=== PATIENT | male | born 1960 | race Caucasian/White ===

== ENCOUNTER 2016-06-12 10:09 | Emergency (ER) | payer MEDICAID | END 2016-06-12 11:02 | disposition home or self-care (01) | DX: S61.411A Laceration without foreign body of right hand, initial encounter (principal); W27.8XXA Contact with other nonpowered hand tool, initial encounter; I10 Essential (primary) hypertension; F17.200 Nicotine dependence, unspecified, uncomplicated ==

== ENCOUNTER 2017-02-16 20:20 | Emergency (ER) | payer MEDICAID ==
[2017-02-16 21:39] LABS: BASOPHILS # (AUTO) 0.1 10^3/uL (0.0-0.1); EOSINOPHILS # (AUTO) 0.3 10^3/uL (0.0-0.7); HCT - HEMATOCRIT 44.1 % (42.0-52.0); HGB - HEMOGLOBIN 14.6 g/dL (14.0-18.0); LYMPHOCYTES # (AUTO) 3.3 10^3/uL (1.5-3.5); LYMPHOCYTES % (AUTO) 37.1 %; MEAN CORPUSCULAR HEMOGLOBIN 30.2 pg (27.0-31.0); MEAN CORPUSCULAR HGB CONC 33.2 g/dL (32.0-36.0); MEAN CORPUSCULAR VOLUME 90.9 fL (80.0-94.0); MEAN PLATELET VOLUME 7.1 fL (7.4-11.4); MONOCYTES # (AUTO) 0.6 10^3/uL (0.0-1.0); MONOCYTES % (AUTO) 6.9 %; NEUTROPHILS # (AUTO) 4.7 10^3/uL (1.5-6.6); NUCLEATED RED BLOOD CELLS AUTO 0.1 /100WBC; RED BLOOD COUNT 4.85 10^6/uL (4.70-6.10); RED CELL DISTRIBUTION WIDTH 13.5 % (12.0-15.0)
[2017-02-16 21:56] LABS: ALBUMIN/GLOBULIN RATIO 1.5 (1.0-2.2); BILIRUBIN,TOTAL 0.3 mg/dL (0.2-1.0); CALCIUM 9.1 mg/dL (8.5-10.3); CREATININE 0.8 mg/dL (0.6-1.2); POTASSIUM 3.4 mmol/L (3.5-5.0); TOTAL PROTEIN 6.7 g/dL (6.7-8.2)
[2017-02-16 22:17] VITALS: BP 128/70
--- NOTE | 2017-02-16 22:24 | ED Physician Documentation ---
PD HPI CHEST PAIN - Stated complaint Stated Complaint: FAST HEART BEAT - Chief complaint Chief Complaint: Cardiac - History obtained from History obtained from: Patient, Family - History of Present Illness Timing - onset: Today Timing - onset during: Rest Timing - details: Abrupt onset, Now resolved Worsened by: No: Exertion, Inspiration, Movement, Palpation Associated symptoms: Feeling faint / dizzy, Palpitations Similar symptoms before: Has not had sx before Recently seen: Not recently seen - Additional information Additional information: Patient is a 56 year old male with a history of htn who came to the emergency department for a racing heart beat. Patient states that he was watching tv and felt like his heart was racing and he felt a little dizzy. Patient states that he checked his pulse and it was around 170. Patient checked his and his son's pulse and they were both within normal limits. They advised him to come in. Upon initial evaluation in the emergency department patient's symptoms had already resolved. Review of Systems Constitutional: denies: Fever, Chills Eyes: denies: Decreased vision, Photophobia Ears: denies: Ear pain, Drainage/discharge Nose: reports: Reviewed and negative Throat: reports: Reviewed and negative Cardiac: reports: Palpitations. denies: Chest pain / pressure, Pedal edema, Calf pain Respiratory: denies: Dyspnea, Wheezing GI: denies: Nausea, Vomiting : reports: Reviewed and negative Skin: reports: Reviewed and negative Musculoskeletal: denies: Neck pain, Back pain, Extremity pain, Extremity swelling Neurologic: denies: Generalized weakness, Focal weakness, Near syncope, Syncope Immunocompromised: denies: Immunocompromised PD PAST MEDICAL HISTORY - Past Medical History Cardiovascular: Hypertension Endocrine/Autoimmune: None GI: GERD : None Psych: Claustrophobia Musculoskeletal: Osteoarthritis Derm: Other - Past Surgical History Past Surgical History: Yes - Present Medications Home Medications: Ambulatory Orders Medication Instructions Recorded Confirmed Atorvastatin [Lipitor] 10 mg PO DAILY 06/12/16 06/12/16 Lisinopril 20 mg PO DAILY 06/12/16 06/12/16 - Allergies Allergies/Adverse Reactions: Allergies Allergy/AdvReac Type Severity Reaction Status Date / Time No Known Drug Allergies Allergy Verified 02/16/17 20:24 - Social History Does the pt smoke?: Yes Smoking Status: Current every day smoker Does the pt drink ETOH?: Yes Does the pt have substance abuse?: No PD ED PE NORMAL - Vitals Vital signs reviewed: Yes - General General: Alert and oriented X 3, No acute distress, Well developed/nourished - HEENT HEENT: Atraumatic, PERRL, Pharynx benign - Neck Neck: Supple, no meningeal sign, No JVD - Cardiac Cardiac: RRR, No murmur, No rub - Respiratory Respiratory: No respiratory distress, Clear bilaterally - Abdomen Abdomen: Soft, Non tender, Non distended - Derm Derm: Normal color, Warm and dry, No rash - Extremities Extremities: No deformity, Normal ROM s pain, No edema, No calf tenderness / cord - Neuro Neuro: Alert and oriented X 3, No motor deficit, No sensory deficit, Normal speech - Psych Psych: Normal mood, Normal affect Results - Vitals Vitals: Vital Signs - 24 hr 02/16/17 02/16/17 20:24 22:16 Temperature 36.3 C L Heart Rate 86 75 Respiratory 16 20 Rate Blood Pressure 160/86 H 128/70 O2 Saturation 96 95 Oxygen O2 Source Room air - EKG (time done) 2030 Rate: Rate (enter#) (80) Rhythm: NSR [place]: Normal Intervals: Normal IN QRS: Normal Ischemia: Normal ST segments Compare to prior EKG: Old EKG unavailable - Labs Labs: Laboratory Tests 02/16/17 02/16/17 02/16/17 21:34 21:34 21:34 WBC 9.0 RBC 4.85 Hgb 14.6 Hct 44.1 MCV 90.9 MCH 30.2 MCHC 33.2 RDW 13.5 Plt Count 277 MPV 7.1 L Neut # 4.7 Lymph # 3.3 [place] # 0.6 Eos # 0.3 Baso # 0.1 Absolute Nucleated RBC 0.01 Nucleated RBC % 0.1 Sodium 136 Potassium 3.4 L Chloride 103 Carbon Dioxide 24 Anion Gap 9.0 BUN 27 H Creatinine 0.8 Estimated GFR (MDRD) 100 Glucose 108 H Calcium 9.1 Total Bilirubin 0.3 AST 29 ALT 47 Alkaline Phosphatase 62 Troponin I < 0.04 Total Protein 6.7 Albumin 4.0 Globulin 2.7 Albumin/Globulin Ratio 1.5 Lipase 27 TSH 02/16/17 21:34 WBC RBC Hgb Hct MCV MCH MCHC RDW Plt Count MPV Neut # Lymph # [place] # Eos # Baso # Absolute Nucleated RBC Nucleated RBC % Sodium Potassium Chloride Carbon Dioxide Anion Gap BUN Creatinine Estimated GFR (MDRD) Glucose Calcium Total Bilirubin AST ALT Alkaline Phosphatase Troponin I Total Protein Albumin Globulin Albumin/Globulin Ratio Lipase TSH 3.31 PD MEDICAL DECISION MAKING - ED course Complexity details: reviewed old records, reviewed results, re-evaluated patient , considered differential, d/w patient, d/w family ED course: Patient was seen and examined at bedside. Patient was well appearing and in no acute distress. ekg was performed and was within normal limits. Patient's diagnostics were all within normal limits. Patient's symptoms were likely secondary to psvt and had improved on its own. Patient and family were given detailed discharge and return instructions. Patient required no further work up and was stable for discharge with outpatient follow up. Departure - Departure Disposition: 01 Home, Self Care Clinical Impression: Dysrhythmia, cardiac Condition: Good Instructions: ED Tachycardia Pat PSVT Follow-Up: Konstantin Tee MD [Primary Care Provider] - Comments: Your diagnostics today were within normal limits. If your heart rate was 177 it was likely svt. You will need to follow up with your doctor this week for a holter monitor and re-evaluation. You should also avoid any stimulants if possible. If it happens again you should bare down, breath through a straw or put ice on your face. You should return to the emergency department if your symptoms persist. Discharge Date/Time: 02/16/17 22:33
== END 2017-02-16 22:33 | disposition home or self-care (01) ==
LOC: ED 20:20
DX: I49.9 Cardiac arrhythmia, unspecified (principal); I10 Essential (primary) hypertension; K21.9 Gastro-esophageal reflux disease without esophagitis; M19.90 Unspecified osteoarthritis, unspecified site; F17.200 Nicotine dependence, unspecified, uncomplicated
CPT/HCPCS: 36415; 80053; 83690; 84443; 84484; 85025; 93005; 99283; 99284

== ENCOUNTER 2017-05-24 07:54 | Outpatient (CLI) | payer MEDICAID ==
--- NOTE | 2017-05-24 13:22 | XRAY Report ---
DATE OF SERVICE: 05/24/2017 THREE VIEW BILATERAL HANDS: 05/24/2017 CLINICAL INDICATION: Bilateral hand pain. COMPARISON: 03/22/2013 right hand. FINDINGS: AP, lateral, oblique views of the bilateral hands demonstrate mild osteoarthritis of the first carpometacarpal joints and interphalangeal joints. The metallic foreign body adjacent to the right fourth metacarpophalangeal joint is stable. No new foreign body is seen. There is no evidence of fracture or dislocation. IMPRESSION: MILD OSTEOARTHRITIS. STABLE METALLIC FOREIGN BODY ADJACENT TO THE RIGHT FOURTH METACARPOPHALANGEAL JOINT. TD: 05/24/2017 14:20
== END 2017-05-24 07:55 | disposition home or self-care (01) ==
LOC: DI 07:54
PROVIDERS: ATTEND Family Medicine
DX: M18.0 Bilateral primary osteoarthritis of first carpometacarpal joints (principal); M19.042 Primary osteoarthritis, left hand; M19.041 Primary osteoarthritis, right hand; M79.5 Residual foreign body in soft tissue

== ENCOUNTER 2022-02-16 13:32 | Emergency (ER) | payer MEDICAID ==
[2022-02-16] MEDS ORDERED: SODIUM CHLORIDE 0.9% 1,000 ML IV STA (14:04)
[2022-02-16] MEDS ORDERED: diltiaZEM INJ 5 MG/ML VIAL IVP STA (14:05)
--- NOTE | 2022-02-16 14:09 | ED Physician Documentation ---
History of Present Illness - Stated complaint Stated Complaint: CHEST PX/DIZZINESS - Chief complaint Chief Complaint: Cardiac - History obtained from History obtained from: Patient - History of Present Illness Timing: How many weeks ago (2) Pain level max: 4 Pain level now: 0 - Additonal information Additional information: Patient is a 61-year-old male that presents to the emergency department stating he has been sick for the past 2 weeks. He states he has had cough, congestion, wheezing. He is on albuterol at home. He states that today he had about 15 minutes of chest tightness as well. He is not having any chest pain currently. Nothing seemed to make it better or worse. No change with movement, palpation, breathing, eating, drinking. He does smoke. He states he has not been smoking much recently so is wearing a nicotine patch currently. Patient denies any cardiac history. Patient states he has taken a negative home COVID test. Review of Systems Ten Systems: 10 systems reviewed and negative Constitutional: reports: Fever. denies: Chills Ears: denies: Ear pain Nose: reports: Rhinorrhea / runny nose, Congestion Cardiac: reports: Palpitations Respiratory: reports: Cough, Wheezing GI: denies: Abdominal Pain, Nausea, Vomiting, Diarrhea Skin: denies: Rash Musculoskeletal: denies: Neck pain, Back pain Neurologic: denies: Headache PD PAST MEDICAL HISTORY - Past Medical History Past Medical History: Yes Cardiovascular: Hypertension Endocrine/Autoimmune: None GI: GERD : None Psych: Claustrophobia Musculoskeletal: Osteoarthritis Derm: Other - Past Surgical History Past Surgical History: Yes - Present Medications Home Medications: Ambulatory Orders Medication Instructions Recorded Confirmed Atorvastatin [Lipitor] 10 mg PO DAILY 06/12/16 06/12/16 lisinopriL [Lisinopril] 20 mg PO DAILY 06/12/16 06/12/16 - Allergies Allergies/Adverse Reactions: Allergies Allergy/AdvReac Type Severity Reaction Status Date / Time No Known Drug Allergies Allergy Verified 02/16/22 13:53 - Social History Does the pt smoke?: Yes Smoking Status: Current every day smoker Does the pt drink ETOH?: Yes Does the pt have substance abuse?: No PD ED PE NORMAL - Vitals Vital signs reviewed: Yes - General General: Alert and oriented X 3, No acute distress, Well developed/nourished - HEENT HEENT: PERRL, Moist mucous membranes - Cardiac Cardiac: Other (Regular, tachycardic) - Respiratory Respiratory: No respiratory distress, Other (Mild wheeze left side) - Abdomen Abdomen: Soft, Non tender, Non distended - Derm Derm: Warm and dry - Extremities Extremities: No edema, No calf tenderness / cord - Neuro Neuro: Alert and oriented X 3 - Psych Psych: Normal mood, Normal affect Results - Vitals Vitals: Vital Signs - 24 hr 02/16/22 02/16/22 02/16/22 13:49 15:00 15:57 Temperature 36.5 C Heart Rate 146 H 100 94 Respiratory 24 13 22 Rate Blood Pressure 132/90 H 139/90 H 137/82 H O2 Saturation 96 97 96 02/16/22 02/16/22 16:00 17:00 Temperature 37.0 C Heart Rate 97 98 Respiratory 8 L 22 Rate Blood Pressure 134/86 H O2 Saturation 95 Oxygen O2 Source Room air - EKG (time done) 1344 Rate: Rate (enter#) (146) Rhythm: Sinus tachycardia [place]: Normal QRS: Normal Ischemia: Other (Rate related changes) 1504 Rate: Rate (enter#) (103) Rhythm: Sinus tachycardia [place]: Normal Intervals: Normal [place] QRS: Normal Ischemia: Normal ST segments - Labs Labs: Laboratory Tests 02/16/22 02/16/22 02/16/22 14:14 14:14 14:14 WBC 4.9 RBC 5.14 Hgb 15.7 Hct 45.7 MCV 88.9 MCH 30.5 MCHC 34.4 RDW 13.0 Plt Count 231 MPV 9.2 Neut # (Auto) 2.5 Lymph # (Auto) 1.6 [place] # (Auto) 0.6 Eos # (Auto) 0.2 Baso # (Auto) 0.0 Absolute Nucleated RBC 0.00 Nucleated RBC % 0.0 Sodium 138 Potassium 3.9 Chloride 102 Carbon Dioxide 26 Anion Gap 10.0 BUN 17 Creatinine 0.7 Estimated GFR (MDRD) 114 Glucose 127 H Calcium 9.3 Total Bilirubin 0.5 AST 35 ALT 51 Alkaline Phosphatase 83 Troponin I High Sens 36.3 H* Total Protein 7.5 Albumin 3.9 Globulin 3.6 Albumin/Globulin Ratio 1.1 Lipase 33 Nasal Adenovirus (PCR) Nasal B. parapertussis DNA (PCR) Nasal Coronavir 229E PCR Nasal Coronavir HKU1 PCR Nasal Coronavir NL63 PCR Nasal Coronavir OC43 PCR Nasal Enterovir/Rhinovir PCR Nasal Influenza B PCR Nasal Influenza A PCR Nasal Parainfluen 1 PCR Nasal Parainfluen 2 PCR Nasal Parainfluen 3 PCR Nasal Parainfluen 4 PCR Nasal RSV (PCR) Nasal B.pertussis DNA PCR Nasal C.pneumoniae (PCR) [place] Human Metapneumo PCR Nasal M.pneumoniae (PCR) Nasal SARS-CoV-2 (PCR) 02/16/22 02/16/22 14:28 16:09 WBC RBC Hgb Hct MCV MCH MCHC RDW Plt Count MPV Neut # (Auto) Lymph # (Auto) [place] # (Auto) Eos # (Auto) Baso # (Auto) Absolute Nucleated RBC Nucleated RBC % Sodium Potassium Chloride Carbon Dioxide Anion Gap BUN Creatinine Estimated GFR (MDRD) Glucose Calcium Total Bilirubin AST ALT Alkaline Phosphatase Troponin I High Sens 37.2 H* Total Protein Albumin Globulin Albumin/Globulin Ratio Lipase Nasal Adenovirus (PCR) DETECTED A Nasal B. parapertussis DNA (PCR) NOT DETECTED Nasal Coronavir 229E PCR NOT DETECTED Nasal Coronavir HKU1 PCR NOT DETECTED Nasal Coronavir NL63 PCR NOT DETECTED Nasal Coronavir OC43 PCR NOT DETECTED Nasal Enterovir/Rhinovir PCR NOT DETECTED Nasal Influenza B PCR NOT DETECTED Nasal Influenza A PCR NOT DETECTED Nasal Parainfluen 1 PCR NOT DETECTED Nasal Parainfluen 2 PCR NOT DETECTED Nasal Parainfluen 3 PCR NOT DETECTED Nasal Parainfluen 4 PCR NOT DETECTED Nasal RSV (PCR) NOT DETECTED Nasal B.pertussis DNA PCR NOT DETECTED Nasal C.pneumoniae (PCR) NOT DETECTED [place] Human Metapneumo PCR NOT DETECTED Nasal M.pneumoniae (PCR) NOT DETECTED Nasal SARS-CoV-2 (PCR) NOT DETECTED - Rads (name of study) cxr Radiology: Final report received, EMP read contemporaneously, See rad report PD MEDICAL DECISION MAKING - ED course Complexity details: reviewed results, re-evaluated patient, considered differential, d/w patient ED course: Patient tested positive for adenovirus. No acute findings on chest x-ray. He was given a dose of diltiazem and his tachycardia resolved. He had had a similar episode several years ago but no cause found. Possible SVT? He feels much better after this. He was also given IV fluids. No evidence of pneumonia or condition that require antibiotics. We will continue supportive care and have him follow-up with his doctor. Mildly elevated high sensitive troponin but no significant change on repeat. Likely rate related. Patient will follow up with his PCP for a cardiac stress test. Patient counseled regarding signs and symptoms for which I believe and urgent re-evaluation would be necessary. Patient with good understanding of and agreement to plan and is comfortable going home at this time This document was made in part using voice recognition software. While efforts are made to proofread this document, sound alike and grammatical errors may occur. Departure - Departure Disposition: 01 Home, Self Care Clinical Impression: Tachycardia, Adenovirus infection Condition: Good Instructions: ED Viral Syndrome Follow-Up: Your,doctor in 1 week [Other] Comments: Please follow-up with your doctor for further care. Return if you worsen. You should have a Holter monitor performed with your doctor to further evaluate your heart rate at home and to exclude any significant arrhythmias. Return if you worsen. There is no pneumonia on your chest x-ray today. You have tested posit kelvin for adenovirus. Discharge Date/Time: 02/16/22 17:22
--- NOTE | 2022-02-16 14:19 | XRAY Report ---
PROCEDURE: Chest 1 View X-Ray INDICATIONS: Chest Pain TECHNIQUE: One view of the chest was acquired. COMPARISON: None FINDINGS: Surgical changes and devices: None. Lungs and pleura: No pleural effusions or pneumothorax. Lungs are mildly abnormal with crowding of the bronchovascular markings and possible mild interstitial prominence versus sequela of reduced insp iration and body habitus.. Mediastinum: Mediastinal contours appear normal. Heart size is at the upper limits of normal. Bones and chest wall: No suspicious bony lesions. Overlying soft tissues appear unremarkable. IMPRESSION: A definite source of chest pain is not seen. The body habitus is large, the inspiratory volume is red uced, and there is resultant crowding of the bronchovascular markings. A mild degree of interstitial prominence likely secondary to these factors, and no focal pneumonia is suspected. Reviewed by: Shahab Leon MD on 02/16/2022 2:18 PM PDT Approved by: Shahab Leon MD on 02/16/2022 2:18 PM PDT Station ID: [id number]
[2022-02-16 14:25] LABS: BASOPHILS % (AUTO) 0.4 %; EOSINOPHILS # (AUTO) 0.2 10^3/uL (0.0-0.7); EOSINOPHILS % (AUTO) 3.9 %; HCT - HEMATOCRIT 45.7 % (42.0-52.0); HGB - HEMOGLOBIN 15.7 g/dL (14.0-18.0); LYMPHOCYTES # (AUTO) 1.6 10^3/uL (1.5-3.5); LYMPHOCYTES % (AUTO) 31.8 %; MEAN CORPUSCULAR HEMOGLOBIN 30.5 pg (27.0-31.0); MEAN CORPUSCULAR HGB CONC 34.4 g/dL (32.0-36.0); MEAN CORPUSCULAR VOLUME 88.9 fL (80.0-94.0); MEAN PLATELET VOLUME 9.2 fL (7.4-11.4); MONOCYTES # (AUTO) 0.6 10^3/uL (0.0-1.0); MONOCYTES % (AUTO) 12.4 %; NEUTROPHILS # (AUTO) 2.5 10^3/uL (1.5-6.6); NEUTROPHILS % (AUTO) 51.1 %; PLT - PLATELET COUNT 231 10^3/uL (130-450); RED BLOOD COUNT 5.14 10^6/uL (4.70-6.10); WHITE BLOOD COUNT 4.9 x10^3/uL (4.8-10.8)
[2022-02-16 14:53] LABS: ALBUMIN 3.9 g/dL (3.2-5.5); ALBUMIN/GLOBULIN RATIO 1.1 (1.0-2.2); BILIRUBIN,TOTAL 0.5 mg/dL (0.2-1.0); CALCIUM 9.3 mg/dL (8.5-10.3); CREATININE 0.7 mg/dL (0.6-1.2); POTASSIUM 3.9 mmol/L (3.5-5.0); TOTAL PROTEIN 7.5 g/dL (6.7-8.2)
[2022-02-16] MEDS: IPRATROPIUM/ALBUTEROL 3 ML NEB INH STA (15:53)
[2022-02-16 15:55] LABS: B. PARAPERTUSSIS- RESP PCR PAN NOT DETECTED; B. PERTUSSIS- RESP PCR PANEL NOT DETECTED; C. PNEUMONIAE- RESP PCR PANEL NOT DETECTED; CORONAVIRUS 229E-RESP PCR NOT DETECTED; CORONAVIRUS HKU1-RESP PCR NOT DETECTED; CORONAVIRUS NL63-RESP PCR NOT DETECTED; CORONAVIRUS OC43-RESP PCR NOT DETECTED; HUMAN METAPNEUMOVIRUS NOT DETECTED; INFLUENZA A- RESP PCR PANEL NOT DETECTED; INFLUENZA B - RESP PCR PANEL NOT DETECTED; M. PNEUMONIAE- RESP PCR PANEL NOT DETECTED; PARAINFLUENZA VIRUS 1 NOT DETECTED; PARAINFLUENZA VIRUS 2 NOT DETECTED; PARAINFLUENZA VIRUS 3 NOT DETECTED; PARAINFLUENZA VIRUS 4 NOT DETECTED; RHINOVIRUS/ENTEROVIRUS NOT DETECTED; RSV- RESP PCR PANEL NOT DETECTED; SARS-CoV-2 -RESP PCR PANEL NOT DETECTED
[2022-02-16 17:06] VITALS: BP 134/86
== END 2022-02-16 17:22 | disposition home or self-care (01) ==
LOC: ED 13:32
DX: B34.0 Adenovirus infection, unspecified (principal); R00.0 Tachycardia, unspecified; F17.200 Nicotine dependence, unspecified, uncomplicated; I10 Essential (primary) hypertension
CPT/HCPCS: 36415; 80053; 83690; 84484; 85025; 87633; 93005; 94640; 94664; 96361; 96374; 99284

== ENCOUNTER 2023-12-03 08:55 | Outpatient (CLI) | payer MEDICAID ==
--- NOTE | 2023-12-03 15:56 | CT Report ---
PROCEDURE: Lung Cancer Screen INDICATIONS: SCREENING FOR CANCER TECHNIQUE: A CT scan of the chest was performed. Intravenous contrast media was not administered. Images were re corded and evaluated at appropriate window settings. Reformats: axial MIP of the chest, coronal and s agittal. For radiation dose reduction, the following was used: automated exposure control, adjustment of mA and/or kV according to patient size. COMPARISON: Chest radiograph on February 16, 2022. FINDINGS: Image quality: Excellent. Prior cancer history: Unsure. Lungs and pleura: No pleural effusions. No pneumothorax. Left upper lobe solid, noncalcified pulmona ry nodule measuring 2 mm (4/27). Additional left upper lobe solid, noncalcified pulmonary nodule grover uring 2 mm (4/31). Left lower lobe solid, noncalcified pulmonary nodule measuring 3 mm (4/80). Patent central airways. Mediastinum: Heart size is normal. No pericardial effusion. No large vessel abnormality. No mediastin al adenopathy by size criteria. Mild calcification of the thoracic aorta. Chest wall and lower neck: Thyroid is unremarkable. No axillary or supraclavicular adenopathy by size . Bones: No aggressive osseous abnormality. No acute fractures. Mild multilevel degenerative changes of the spine. Upper Abdomen: Unremarkable. IMPRESSION: A few scattered solid pulmonary nodules measuring up to 3 mm. Lung RAD: 2 - Benign. Recommendation: Continue annual screening in 12 Months with LDCT Reviewed by: Marques Nelson MD on 12/03/2023 3:55 PM PDT Approved by: Marques Nelson MD on 12/03/2023 3:55 PM PDT Station ID: [id number]
== END 2023-12-03 08:56 | disposition home or self-care (01) ==
LOC: DI 08:55
DX: Z12.2 Encounter for screening for malignant neoplasm of respiratory organs (principal); R91.8 Other nonspecific abnormal finding of lung field

== ENCOUNTER 2023-12-17 13:02 | Outpatient (CLI) | payer MEDICAID ==
[2023-12-17] MEDS: ALBUTEROL 1 PUFF INH STA (16:00)
== END 2023-12-17 13:03 | disposition home or self-care (01) ==
LOC: RT 13:02
DX: R06.09 Other forms of dyspnea (principal); F17.200 Nicotine dependence, unspecified, uncomplicated
CPT/HCPCS: 94060; 94727; 94729

== ENCOUNTER 2024-01-17 13:44 | Outpatient (CLI) | payer MEDICAID ==
--- NOTE | 2024-01-17 14:40 | Sleep Patient Instructions ---
Sleep Center Visit Summary - Patient Visit Information Reason for Visit: Initial consult for evaluation of sleep disordered breathing and other sleep issues. - Patient Instructions Instructions Attached: Sleep Study Home Monitor, Sleep Study Additional Instructions: You will be completing a sleep study, either an in-lab polysomnography (PSG) or home sleep study (HST). You will follow-up in the sleep care office after the sleep study is completed to hear the results and talk about therapy, if needed. You will be called by our office staff to schedule this appointment, but you may contact us with any questions. - Clinic Information Contact: [facility] [address] [place] [id number] [email or web address] T: [phone]
--- NOTE | 2024-01-17 14:43 | SLEEP CARE CONSULTATION ---
Information from patient questionnaire entered by Galen Pandey. I have reviewed and concur with the information entered by Galen Pandey. This document represents the service I personally performed and the decisions made by me, Carin Coker ARNP. History of Present Illness Service Date and Time: 01/17/2024 1344 Reason for Visit: New patient Chief Complaint: reports: Unrefreshed sleep, Snoring, Excessive daytime sleepiness, Fatigue, Frequent awakenings at night Date of Onset: 4-5YRS Usual bedtime: 2100 Time it takes to fall asleep: 15-20MINS Snores at night: Yes Observed to quit breathing while asleep: Yes Sleeps alone due to snoring: Yes Number of times waking at night: EVERY HR Reasons for waking at night: reports: Snoring, Bathroom, Other (unknown reasons). denies: Choking, Gasping for air Toss, Turn, or Twitch while sleeping: No Recalls having dreams: No Usually gets out of bed at: 2625-6385 Feels refreshed in the morning: No Morning headache: No Sleepy or fatigued during the day: Yes Ever fallen asleep while driving: Yes Takes day naps: Yes (almost every day) Dreams during day naps: Yes Prior sleep studies: No Additional HPI information: I had the pleasure of seeing FELTON KEARNS today regarding the possibility of him having a sleep disorder. His current complaints are excessive daytime sleepiness, fatigue, frequent night awakenings, snoring and unrefreshed sleep. He is "super tired" lately and is not sleeping at night "hardly". He says he gets so tired in afternoons he is taking naps. He has some trouble with drowsy driving, even shorter drives. He has had a close call when driving in afternoon and is taking NoDoze. He has been told that his snoring is really bad. He is sleeping in his recliner because he gets the best sleep in the chair. He says "everyone" has been trying to get him to come in for evaluation of his sleep for a long time. - Parasomnia Symptoms Ever been unable to move upon waking from sleep: No Walks in sleep: No Talks in sleep: No Ever acted out dreams in sleep: No Ever felt weak in the knees when startled or emotional: No Bothered by creepy, crawly, restless sensations in legs: Yes Problems with memory or concentration: Yes (both) Subjective Initial Seney Sleepiness Scale score: 20 (01/17/24) Past Medical History Past Medical History: reports: Hypertension, Arthritis, Attention deficit, Other (CARPEL TUNNEL) Social History The patient's occupation is a RE. Patient is and lives in [place]. Have you smoked in the past 12 months: Yes (has reduce amount) Cigarettes per day (20/pack): 20 Years of smokin Smoking Pack Years: 55.0 Alcohol use: Yes Alcohol amount and frequency: NOT MUCH ONCE AWEEK Caffeine use: Yes Caffeine amount and frequency: 2 CUPS COFFEE EVERY MORNING Family History Family history of sleep disordered breathing: Yes Family Hx Sleep Apnea: Sibling: Snoring, Sleep apnea - Treated Allergies and Home Medications Known drug allergies: No Drug allergies reviewed: Yes Home medication list reviewed: Yes (as listed) Allergy and home medication list: Allergies No Known Drug Allergies Allergy (Verified 01/17/24 13:45) Home Medications Medication Instructions Recorded Confirmed Last Taken Type Atorvastatin [Lipitor] 10 mg PO DAILY 06/12/16 01/17/24 Unknown History lisinopriL [Lisinopril] 20 mg PO DAILY 06/12/16 01/17/24 Unknown History Tamsulosin [Flomax] See Rx Instructions .ROUTE .COMPLEX 01/17/24 01/17/24 Unknown History Review of Systems Weight gain over past 5 years: 30 Cardiovascular: reports: high blood pressure, have to sleep sitting up Gastrointestinal: denies: heartburn Urinary: reports: frequency, urgency Neurological: denies: headaches Psychiatric: denies: anxiety, depression Ear/Nose/Throat: reports: wisdom teeth removed. denies: tonsillectomy Endocrine: reports: unexplained weakness Musculoskeletal: reports: joint pain, neck pain, back pain Physical Exam Vital signs obtained and entered by: GALEN Hernandes MA Blood Pressure: 123/77 (RIGHT ARM) Cuff size: long Heart Rate: 100 O2 Saturation: 94 Height: 5 ft 11 in Weight: 294 lb 9.6 oz Body Mass Index: 41.1 BMI Classification: Morbidly Obese Neck circumference: 20.5 Mouth and throat: narrow oropharynx Soft palate: long Hard palate: normal Uvula: normal Uvula visualization: 25% Mallampati Class III Tongue: enlarged in size with teeth owen on lateral edges Tonsils: 2+ Neck: normal w/o lymphadenopathy or thyromegaly Heart: regular rate and rhythm Lungs: clear bilaterally Impression and Plan 1. Suspected Obstructive Sleep Apnea-Hypopnea Syndrome, as suggested by a history of loud and irregular snoring, observed cessation of breath while asleep, frequent awakening during the night, unrefreshed sleep, cognitive impairment, and excessive daytime sleepiness. Narrow oropharynx and obesity are common predisposing factors for obstructive sleep apnea-hypopnea syndrome. I recommend proceeding to polysomnography to confirm the diagnosis and to assess severity. If the patient has significant sleep disordered breathing, a manual CPAP titration study will also be performed to find the optimal treatment pressure. I informed the patient of what the sleep studies involve and after some discussion, obtained agreement to proceed. The pathophysiology of obstructive sleep apnea-hypopnea syndrome was discussed with the patient and health risks of cardiovascular and cerebrovascular disease if not treated. Risks of drowsy driving discussed in detail and patient advised to avoid long distance driving and to stick puller at the first sign of drowsiness. Patient agreed to plan. * Schedule polysomnography * Avoid long distance driving or driving when feeling sleepy. * Avoid alcohol, sedative and muscle relaxant around bedtime. * Attempt to lose weight. * Review instructions provided by trained office staff on how to prepare for the sleep study. * Return for follow-up after sleep study completed. Counseling Topics: Weight loss health impact Plan: sleep study and follow up Visit Type: In Office Time Spent with Patient (minutes): 30 Provider Statement: I spent 100% of the Face to Face Visit with the patient with greater than 50% spent counseling the patient and coordination of care.
[2024-01-17 14:52] VITALS: BP 123/77; O2SAT 94
== END 2024-01-17 13:45 | disposition home or self-care (01) ==
LOC: SC 13:44
PROVIDERS: ATTEND Nurse Practitioner Family
DX: G47.10 Hypersomnia, unspecified (principal); R53.83 Other fatigue; G47.8 Other sleep disorders; R06.83 Snoring; F17.210 Nicotine dependence, cigarettes, uncomplicated; E66.01 Morbid (severe) obesity due to excess calories; Z68.41 Body mass index [BMI] 40.0-44.9, adult
CPT/HCPCS: 99203; 99212